=== PATIENT | male | born 1975 | race Caucasian/White ===

== ENCOUNTER 2022-05-28 08:04 | Emergency (ER) | payer SELFPAY ==
--- OUTSIDE RECORDS SUMMARY | 2022-05-28 08:08 | XMS REPORT | Continuity of Care Document ---
:1975 Author Organization [facility] t Address [address] [place] [address] Care Team Providers Name Role Phone Pcp, Patient Does Not Have A Primary Care Physician [phone] [facility] Attending Clinician Unavailable RYAN MELENDEZ Attending Clinician Unavailable RYAN MELENDEZ Admitting Clinician Unavailable Problems Condition Condition Condition Status Onset Resolution Last Treating Co mments Source Name Details Category Date Date Treatment Clinician Date Seizure Seizure Disease Active [facility] 2-23 ity of 00:00: [place] 00 Medical Branch Chronic Chronic Disease Active [facility] right-side right-side 11-01 it y of d [place] pain pain 00 Medical without without Branch sciatica sciatica Tobacco Tobacco Disease Active [facility] abuse abuse 11-01 ity of 00:00: [place] 00 Medical Branch Allergies, Adverse Reactions, Alerts This patient has no known allergies or adverse reactions. Social History Social Habit Start Date Stop Date Quantity Comments Source Sex Assigned At [birth year] [facility] [place] [facility]00 [facility]:00:00 Medical Branch Smoking Status Start Date Stop Date Source Tobacco smoking consumption [facility] Medical unknown Branch Medications Ordered Filled Start Stop Current Ordering Indication Dosage Frequency Signature Comments Components Source Medication Medication Date Date Medication? Clinician (SIG) Name Name naproxen Yes [id number] 550mg Take 1 Un remedios sodium 8-14 tablet by ity of (ANAPROX 00:00: mouth 2 [place] DS) 550 mg 00 (two) Medical tablet times Branch daily with meals. methylPREDN Yes [id number] Take by Univers ISolone 8-14 mouth ity of (MEDROL, 00:00: SEE-INSTRU Jon as MARISA,) 4 mg 00 CTIONS. Medica l tablets follow [place] package directions levETIRAcet Yes [id number] 500mg Take 1 Univers am (KEPPRA) 2-23 tablet by ity of 500 mg 00:00: mouth 2 [place] tablet 00 (two) Medical times Branch daily. LORazepam Yes 1mg Take 1 Univer s (ATIVAN) 1 7-26 tablet by ity of mg tablet 00:00: mouth 3 [place] 00 (three) Medical times Branch daily as needed for Anxiety or Agitation. NAPROXEN 2008-09 Yes 1 PO BID Unive rs 500 MG ORAL 1-18 PRN PAIN ity of TBEC 00:00: [place] 00 [facility] Branch ZITHROMAX 2008-09 Yes as Univers Z-MARISA 250 1-18 directed ity of MG ORAL TAB 00:00: [address] Branch Procedures This patient has no known procedures. Encounters Start End Encounter Admission Attending Care Care Encounter Source Date/Time Date/Time Type Type Clinicians Facility Department ID 2022-05-21 2022-05-21 Telephone Provider, [facility] [id number] Univers 00:00:00 00:00:00 [facility] [id number] it y of Urgent Care [place] [id number] [place] WARREN?BLEA [id number] [address] MEDICAL OFFICE BUILDING Results Test Description Test Time Test Comments Results Result [facility] e Comments MRI BRAIN W/ AND 2017-06-23 EXAM: MRI of the Brain W/O CONTRAST 19:53:32 without and with contrastLocation code:R 16HISTORY: Drug induced seizuresCOMPARISON: None available.TECHNIQUE:Sagi ttal T1, axial T1,T2, FLAIR, T2 GRE, Diffusion with ADC mapping,coronal T2 and post contrast axial and coronal T1 weighted images of the brainbefore and after contrast were obtained. Intravenous contrast administered nocontrast or GFR information is available.FINDINGS: No diffusion abnormalities are identified to suggest acute ischemicinfarction. No signal abnormalities are identified on T2 GRE images to suggestacute or chronic hemorrhagic products. There are no foci of abnormalparenchymal or leptomeningeal enhancement. The brain parenchymal volume andventricular caliber are within normal limits. No mass lesions or extra-axialfluid collections are seen. Few scattered foci of T2/FLAIR abnormalities arenoted in the subcortical and periventricular white matter and are non-specific.The midline structures including the corpus callosum, pituitary gland andsella, brainstem and craniocervical junction are normal. The posterior cranialfossa structures are normal. Normal signal voids are identified in theintracranial arterial vasculature and dural venous sinuses. The mastoid aircells and orbits are within normal limits. Partial opacification of the rightmaxillary sinus.IMPRESSION: No acute findings. No abnormal enhancement. Unremarkable brain. CT PE PROTOCOL 2017-06-23 CT CHEST WITH CONTRAST, 12:27:56 PE PROTOCOL:Location code: R 16CLINICAL HISTORY: Shortness of breath , chest painThe lungs are clear. There is no consolidation or effusion. The centralairways are patent.COMPARISON: NoneTECHNIQUE: Following the administration of a timed IV contrast bolus, helicalCT of the chest was performed. Thin section axial, coronal, and sagittalimages were obtained. Oblique sagittal maximum intensity reformatted images ofthe pulmonary arteries were also obtained. No contrast or GFR information isavailable.FINDINGS: There is no filling defect within the pulmonary arteries to suggest pulmonaryembolus. The aorta is of normal caliber and contour. There is a linear left upper lobe apical lesion which measures 4.8 x 2.6 x 3.1cm. The lesion contains scattered calcifications. Upper lobe predominantcentrilobular emphysema is noted.There is no mediastinal adenopathy or mass. There is no pericardial effusion. Images through the upper abdomen are unremarkable.The bones, skin and surrounding soft tissues are unremarkable. IMPRESSION:1. Negative for PE2. Linear left upper lobe apical mass is noted measuring 4.8 x 2.6 x 3.1 cm.This may represent scar tissue versus a malignancy. Consider further evaluationwith follow-up PET/CT clinically indicated.3. COPD DRUGS OF ABUSE 2017-06-23 12:21:00 Test Item Value Reference Range Interpretation Comme nts DRUG SCRN (test code = HDOA) URINE DRUG SCREEN This is an unconfirmed screening result and should not be used for non-medical purposes CANNABINOD (test code = 88C) Negative NEGATIVE AMPHETAMINE (test code = 84A) Negative NEGATIVE BENZODIAZP (test code = 86A) POSITIVE NEGATIVE A BARBITURAT (test code = 85A) Negative NEGATIVE OPIATES (test code = 92B) POSITIVE NEGATIVE A COCAINE (test code = 87A) POSITIVE NEGATIVE A PHENCYCLID (test code = 66A) Negative NEGATIVE METHADONE (test code = 64A) Negative NEGATIVE DOAH (test code = DOAH) URINE DRUG SCREEN Cut-off values are as follows: Cannabinoids 50 ng/mL Cocaine 300 ng/mL Amphetamines 1000 ng/mL Phencyclidine 25 ng/mL Benzodiazepines 200 ng.mL Methadone 300 ng/mL Barbiturates 200 ng/mL Opiates 2000 ng/mL URINALYSIS WITH [id number] 12:14:00 Test Item Value Reference Range Interpretation Comments COLOR (test code = COLU) YELLOW YELLOW CLARITY (test code = CLA) TURBID CLEAR A GLUCOSE UR (test code = UA GLUCOSE) NEGATIVE NEGATIVE BILI UR (test code = BILE) NEGATIVE NEGATIVE KETONES UR (test code = MATTY) 1+ NEGATIVE A SP GRAVITY (test code = SPGR) 1.021 1.005-1.030 PH UR (test code = PH) 7.0 4.5-8.0 PROTEIN UR (test code = PU) NEGATIVE NEGATIVE UROBIL UR (test code = UROQ) 0.2 EU/dL 0.2-1.0 NITRITE UR (test code = NITRITE) NEGATIVE NEGATIVE BLOOD UR (test code = UA BLOOD) NEGATIVE NEGATIVE LEUK ES UR (test code = LEUK) 1+ NEGATIVE A WBC UR (test code = UWBC) 4 /HPF 0-3 H RBC UR (test code = URBC) 0 /HPF 0-2 EPITH UR (test code = UEPC) FEW /LPF NONE A BACTERIA UR (test code = UBACT) NONE /HPF NONE CAST UR (test code = CAST) /LPF NONE CRYSTAL UR (test code = CRYU) / LPF NONE MUCUS UR (test code = MUC) / HPF NONE AMORPH UR (test code = YVON) / HPF NONE TRICH UR (test code = UTRICH) /HPF NONE YEAST UR (test code = UY) /HPF NONE SPERM UR (test code = USPERM) /HPF NONE [id number] 12:03:00 Test Item Value Reference Range Interpretation Comments D-DIMER (test code = 444 ng/mL D-DU 0-234 H DDI) D-DIMER COMMENT (test *Level to rule out code = DDCOM) DVT or PE: <235 ng/mL D-DU* [id number] 11:03:00 Test Item Value Reference Range Interpretation Comments SALICYLATE (test code = 94B) 4.2 mg/dL 2.8-20.0 [id number] 10:58:00 Test Item Value Reference Range Interpretation Comments ACETAMINPH (test code = 94M) <2.0 ug/mL 10.0-30.0 L COMPREHENSIVE METABOLIC [id number] 10:58:00 Test Item Value Reference Range Interpretation Comments GLUCOSE (test code = 06D) 159 mg/dL 75-100 H SODIUM (test code = 01A) 135 mmol/L 136-145 L POTASSIUM (test code = 01B) 4.6 mmol/L 3.6-5.1 CHLORIDE (test code = 04A) 102 mmol/L 98-107 CO2 (test code = 02A) 22 mmol/L 22-32 ANION GAP (test code = ANG) 15.6 mmol/L BUN (test code = 05D) 10 mg/dL 7-18 CREATININE (test code = 03E) 1.0 mg/dL 0.7-1.3 BUN/CREA (test code = BCR) 10 12-20 L CALCIUM (test code = 09D) 8.9 mg/dL 8.3-9.5 BILI TOTAL (test code = 11A) 0.4 mg/dL 0.2-1.0 PROTEIN (test code = 07D) 7.0 g/dL 6.4-8.2 ALBUMIN (test code = 08D) 3.3 g/dL 3.5-4.8 L GLOBULIN (test code = GLB) 3.7 g/dL 1.5-3.8 ALB/GLOB (test code = AGRR) 0.9 1.0-2.6 L ALK PHOS (test code = 35A) 116 IU/L 42-121 AST (test code = 30A) 20 IU/L <=42 ALT (test code = 31A) 27 IU/L <=78 [id number] 10:53:00 Test Item Value Reference Range Interpretation Comments MAGNESIUM (test code = 48A) 2.3 mg/dL 1.8-2.4 CARDIAC [id number] 10:51:00 Test Item Value Reference Range Interpretation Comments TROPONIN I (test code = A84) <0.015 ng/mL 0.000-0.045 CKMB (test code = A49) <1.0 ng/mL <=3.6 CPK (test code = 32A) 82 IU/L 39-308 CT CERVICAL SPINE W/O [id number] 10:50:58CLINICAL HISTORY: Neck pain.LOCATION: D4.FINDINGS: Multislice axial noncontrast images are obtained t hrough the cervicalspine. Sagittal and coronal reconstructed images are obtained and are used ininterpretation.There is normal alignment. Disc height is preserved at all levels. There ismild sclerosis and osteophyte formation at the atlantodental articulation.There is mild to moderate facet joint disease, greatest on the right at C4/C5.No acute skeletal abnormalities are identified. No acute soft tissueabnormalities are noted. No significant spinal canal narrowing is appreciated.Pronounced mucosal thickening is noted within the right maxillary sinus andthere is moderate mucosal thickening within the right sphenoid sinus. Mildmucosal thickening is noted within the left maxillary sinus and left sphenoidsinus.IMPRESSION:1. No acute abnormalities.ALCOHOL BLOOD (ETOH) 2017-06-23 10:47:00 Test Item Value Reference Range Interpretation Comments ALCOHOL (test code = <10 mg/dL <=10 56A) Ref Range Change (test Please note the code = REF RANGE) change in reference range PRO TIME AND [id number] 10:47:00 Test Item Value Reference Range Interpretation Comments PT (test code = 12.3 s 9.8-13.6 TT) INR (test code = 1.1 INR) INRH (test code = SUGGESTED THERAPEUTIC INRH) RANGE FOR INR: 2.5 - 3.5 For Patients with Prosthetic Valves or Patients with recurrent Thromboembolic Events 2.0 - 3.0 For Most Other Applications PTT (test code = 32.3 s 20.2-38.0 PTT) PTTH (test code = To monitor the PTTH) effectiveness of heparin, we offer the Anti-Xa (Heparin Assay). It can be used for either unfractionated or LMW Heparin. Order Code is ANTI-XA CT HEAD W/O [id number] 10:46:06Clinical History: Altered mental status.Location: D4.Findings: Multislice axial noncontrast images are obtained through the head.No comparison studies. There is an 8 mm old lacunar infarct or prominentperivascular space at the left basal ganglia. No other areas of abnormaldensity are otherwise identified within the brain. No mass effect is evident.There is no evidence of hydrocephalus. No intra or extra-axial hemorrhage orfluid collections are identified. No evidence of acute infarct is seen. Noabnormalities are noted of the visualized skeletal structures, sinuses, or softtissues.Impression:1. There is an 8 mm old lacunar infarct or prominent perivascular space at theleft basal ganglia. No acute abnormalities.XR CHEST 1 VIEW [id number] 10:38:08CLINICAL HISTORY: Chest pain. LOCATION: D4.FINDINGS: No comparison studies. A portable AP view of the chest is datedOct2016 at 1003 hours. The cardiomediastinal silhouette is withinnormal sizelimits. There is an approximately 5.5 cm irregular opacityoverlying the left lung apex. There is mild reticulonodular prominence at thelower lungs bilaterally. No pleural effusions are evident. There are nosignificant skeletal or soft tissue abnormalities. IMPRESSION:1. There is mild reticulonodular prominence at the lower lungs bilaterally.Acute mild interstitial infiltrates are not excluded.2. 5.5 cm irregular opacity overlying the left lung apex may representscarring.3. These findings may be further evaluated with CT chest without contrastCBC (INCLUDES AUTOMATED DIFFERENTIAL) 2017-06-23 10:38:00 Test Item Value Reference Range Interpretation Comments WBC (test code = WBC) 10.7 10\S\3/uL 4.5-11.0 RBC (test code = RBC) 4.42 10\S\6/uL 4.30-5.70 HGB (test code = HBG) 13.7 g/dL 14.0-18.0 L HCT (test code = HCT) 39.8 % 35.0-46.0 MCV (test code = MCV) 90.0 fL 80.0-94.0 MCH (test code = MCH) 31.0 pg 27.0-31.0 MCHC (test code = MCHC) 34.4 g/dL 32.0-36.0 RDW (test code = RDW) 15.8 % 11.5-14.5 H PLT (test code = PLT) 314 10\S\3/uL 130-400 MPV (test code = MPV) 8.6 fL 9.4-12.4 L NEUTROP # (test code = NE#) 7.5 10\S\3/uL 2.0-8.0 LYMPH # (test code = LY#) 2.0 10\S\3/uL 1.2-4.0 MONOCYTE # (test code = MO#) 0.9 10\S\3/uL 0.0-1.1 EOSINOPH # (test code = EO#) 0.1 10\S\3/uL 0.0-0.7 BASOPHIL # (test code = BA#) 0.1 10\S\3/uL 0.0-0.3 IG # (test code = IG#) 0.09 10\S\3/uL 0.00-0.06 H NRBC # (test code = NRBC#) 0.00 10\S\3/uL 0.00-0.01 NEUTROPH % (test code = NE%) 70.7 % 35.0-73.0 LYMPH % (test code = LY%) 18.7 % 20.0-55.0 L MONO % (test code = MO%) 8.3 % 2.5-10.0 EOSINOPH % (test code = EO%) 0.8 % 0.0-5.0 BASOPHIL % (test code = BA%) 0.7 % 0.0-2.0 IG % (test code = IG%) 0.8 % 0.0-0.8 NRBC% (test code = NRBC%) 0.0 % 0.0-0.2 MANDIFF (test code = MDIFF) NO NO RBC MORPH (test code = RBCMOR) NORMAL
[2022-05-28 08:25] LABS: Absolute Lymphocytes (CBC) 0.7 K/uL (0.7-4.9); Hematocrit 34.6 % (39.6-49.0); Lymphocytes % 6.5 % (15.3-44.8); MCV 89.4 fL (80-100); MPV 6.4 fL (7.6-11.3); RBC Red Blood Cell Count 3.87 M/uL (4.33-5.43)
[2022-05-28] MEDS ORDERED: ALBUTEROL 2.5 MG/3 ML NEB SOL ONE (08:34)
[2022-05-28] MEDS ORDERED: KETOROLAC 30 MG/ML INJ ONE (08:35)
[2022-05-28] MEDS ORDERED: NA CHLORIDE 0.9% 1,000 ML ONE (08:35)
[2022-05-28] MEDS ORDERED: predniSONE 20 MG TAB ONE (08:35)
[2022-05-28] MEDS ORDERED: IPRATROPIUM BROM 0.5MG/2.5ML ONE (08:35)
[2022-05-28 08:43] LABS: Albumin 2.1 g/dL (3.4-5.0); Bilirubin Total 0.3 mg/dL (0.2-1.0); Magnesium 2.2 mg/dL (1.8-2.4); Potassium 3.8 mmol/L (3.5-5.1); Protein, Total 7.7 g/dL (6.4-8.2); Troponin High Sensitivity 3.5 pg/mL (<58.9)
--- NOTE | 2022-05-28 09:24 | RAD REPORT ---
EXAM DESCRIPTION: RAD - Chest Single View - 05/28/2022 8:41 am CLINICAL HISTORY: CHEST PAIN Chest pain. COMPARISON: No comparisons FINDINGS: Portable technique limits examination quality. There is moderately severe opacification of the right upper lobe this is likely infection/pneumonia. The heart is normal in size. No displaced fractures. IMPRESSION: Moderate right upper lobe pneumonia.
--- NOTE | 2022-05-28 09:48 | EDPHYS ---
Physician Documentation [facility] Name: Vince Rm II Age: 46 yrs Sex: Male : 1975 Arrival Date: 05/28/2022 Time: 08:05 Bed 2 Private MD: ED Physician Nadja Alvarez HPI: 05/28 08:14 This 46 yrs old Male presents to ER via EMS with complaints of Painful Cough. sd2 08:14 46-year-old male presents via EMS with chief complaints of right-sided chest pain worse sd2 with coughing. He reports he started coughing 3 to 4 days ago and had a negative COVID test yesterday. He is currently at [facility] for cocaine abuse and has not had any cocaine within the last 2 weeks. He states he has had fevers up to 100.5 F. He did try taking Tylenol yesterday and did end up throwing it back up. However, he does not endorse any other nausea, vomiting or diarrhea. He denies any known sick contacts. Does report associated shortness of breath and does have a history of smoking but is not currently on any nebulizer treatments or inhalers at home.. Historical: - Allergies: 08:07 No Known Allergies; ll1 - PMHx: 08:07 None; ll1 - PSHx: 08:07 None; ll1 - Immunization history:: Client reports having NOT received the Covid vaccine. - Social history:: Smoking status: Patient reports the use of cigarette tobacco products, denies chronic smoking, but will smoke occasionally, smokes one-half pack cigarettes per day. ROS: 08:14 Eyes: Negative for injury, pain, redness, and discharge. sd2 08:14 Respiratory: Positive for shortness of breath, cough, wheezing. Abdomen/GI: Negative for abdominal pain and diarrhea, Positive for nausea and vomiting MS/Extremity: Negative for injury and deformity, Skin: Negative for injury, rash, and discoloration, Neuro: Negative for headache, numbness and tingling. 08:14 Constitutional: Positive for chills, fever, Negative for body aches, weight loss. 08:14 Cardiovascular: Positive for chest pain, Negative for edema, orthopnea, palpitations. Exam: 08:14 Constitutional: This is a well developed, well nourished patient who is awake, alert, sd2 and in no acute distress. Head/Face: Normocephalic, atraumatic. Chest/axilla: Normal chest wall appearance and motion. Nontender with no deformity. Cardiovascular: Regular rate and rhythm with a normal S1 and S2. No gallops, murmurs, or rubs. 2+ distal pulses. Respiratory: Expiratory wheezing noted in RLL, no chest wall tenderness or crepitus, no tachypnea, no increased WOB Abdomen/GI: Soft, non-tender, with normal bowel sounds. No guarding or rebound. No evidence of tenderness throughout. Skin: Warm, dry with normal turgor. Normal color with no rashes, no lesions, and no evidence of cellulitis. MS/ Extremity: Pulses equal, no cyanosis. Neurovascular intact. Full, normal range of motion. Ambulatory without difficulty. Psych: Awake, alert, with orientation to person, place and time. Behavior, mood, and affect are within normal limits. 08:20 ECG was reviewed by the Attending Physician. NSR, rate 87, no STEMI criteria, sd2 occasional PVCs present Vital Signs: 08:06 BP 110 / 67; Pulse 109; Resp 20; Temp 98.8; Pulse Ox 95% on R/A; Weight 59.42 kg; ll1 Height 5 ft. 11 in. (180.34 cm); Pain 9/10; 11:12 BP 111 / 67; Pulse 78; Resp 18; Pulse Ox 100% on R/A; kr3 08:06 Body Mass Index 18.27 (59.42 kg, 180.34 cm) ll1 MDM: 08:09 Patient medically screened. sd2 08:14 Differential Diagnosis: Other Differential diagnosis includes but is not limited to: sd2 ACS, DVT/PE, pneumothorax, dissection, musculoskeletal, anxiety, anemia, electrolyte abnormality, pneumonia, CHF, COPD among others. Data reviewed: vital signs, nurses notes, EMS record. 09:46 Data reviewed: lab test result(s), EKG, radiologic studies. Counseling: I had a sd2 detailed discussion with the patient and/or guardian regarding: the historical points, exam findings, and any diagnostic results supporting the discharge/admit diagnosis, lab results, radiology results, the need for outpatient follow up, to return to the emergency department if symptoms worsen or persist or if there are any questions or concerns that arise at home. Medical screen evaluation completed. EMTALA emergency medical condition absent. ED course: Labs and imaging reviewed. Pt positive for Flu A with RUL PNA on CXR. Rocephin given. Will discharge on Azithromycin and steroids with inhaler for home use. pt advised of continued supportive care for symptoms and need for outpatient follow up. Verbalizes understanding of discharge plan and strict return precautions. . 05/28 08:14 Order name: CBC with Diff; Complete Time: 08:50 sd2 05/28 08:14 Order name: CMP; Complete Time: 08:50 sd2 05/28 08:14 Order name: Magnesium; Complete Time: 08:50 sd2 05/28 08:14 Order name: Troponin High Sensitivity; Complete Time: 08:50 sd2 05/28 08:14 Order name: BNP; Complete Time: 08:50 sd2 05/28 08:14 Order name: SARS-COV-2 RT PCR (Document "Date of Onset" if Symptomatic); Complete Time: sd2 09:30 05/28 08:14 Order name: EKG - Nurse/Tech; Complete Time: 08:21 sd2 05/28 08:14 Order name: XRAY Chest (1 view); Complete Time: 09:30 sd2 05/28 08:14 Order name: Influenza Screen (a \\T\\ B); Complete Time: 09:30 sd2 Administered Medications: 08:42 Drug: Ketorolac 15 mg Route: IVP; Site: right forearm; kr3 11:24 Follow up: Response: No adverse reaction kr3 08:42 Drug: DuoNeb (albuterol 2.5 mg, ipratropium 0.5 mg) (3:1) (2.5 mg - 0.5 mg) 3 ml Route: kr3 Nebulizer; 11:22 Follow up: Response: No adverse reaction kr3 08:42 Drug: predniSONE 60 mg Route: PO; kr3 11:22 Follow up: Response: No adverse reaction kr3 08:42 Drug: NS 0.9% 500 ml Route: IV; Rate: bolus; Site: right forearm; kr3 11:22 Follow up: Response: No adverse reaction; IV Status: Completed infusion; IV Intake: kr3 500ml 10:10 Drug: Rocephin (cefTRIAXone) 1 grams Route: IV; Rate: bolus; Site: right forearm; kr3 11:22 Follow up: Response: No adverse reaction; IV Status: Completed infusion; IV Intake: [id number] Disposition Summary: 05/28/22 09:48 Discharge Ordered Location: Home sd2 Problem: new sd2 Symptoms: have improved sd2 Condition: Stable sd2 Diagnosis - Influenza due to identified novel influenza A virus sd2 - Right upper lobe pneumonia sd2 Followup: sd2 - With: Private Physician - When: 2 - 3 days - Reason: Recheck today's complaints, Continuance of care, Re-evaluation by your physician Discharge Instructions: - Discharge Summary Sheet sd2 - Influenza, Adult sd2 - Community-Acquired Pneumonia, Adult sd2 Forms: - Medication Reconciliation Form sd2 - Thank You Letter sd2 - Antibiotic Education sd2 - Prescription Opioid Use sd2 Prescriptions: - albuterol sulfate 90 mcg/actuation Inhalation HFA aerosol inhaler - inhale 2 puff by INHALATION route every 4-6 hours As needed for cough and sd2 shortness of breath; 1 Inhaler; Refills: 0, Product Selection Permitted - Zithromax Z-Gonzalo 250 mg Oral Tablet - take 1 tablet by ORAL route as directed for 5 days Day 1 - take two (2) tablets sd2 one time. Day 2, 3, 4 , 5 take one (1) tablet once daily.; 6 tablet; Refills: 0, Product Selection Permitted - Prednisone 20 mg Oral Tablet - take 2 tablets by ORAL route once daily for 5 days; 10 tablet; Refills: 0, sd2 Product Selection Permitted Signatures: Dispatcher [employer] Macario Brewster RN RN 1 Nadja Alvarez MD MD sd2 Chary Bennett RN RN kr3
--- NOTE | 2022-05-28 09:48 | ER ---
Nurse's Notes [facility] Name: Vince Rm II Age: 46 yrs Sex: Male : 1975 Arrival Date: 05/28/2022 Time: 08:05 Bed 2 Private MD: Diagnosis: Influenza due to identified novel influenza A virus;Right upper lobe pneumonia Presentation: 05/28 08:06 Chief complaint: Patient states: R sided CP with cough,fever off/on for 3-4 days[address] At [address] for cocaine use. Coronavirus screen: Vaccine status: Patient reports being unvaccinated. Client denies travel out of the [place] in the last 14 days. congestion, cough unrelated to allergies, difficulty breathing, fatigue, fever, headache, Client presents with at least one sign or symptom that may indicate coronavirus-19. Standard/surgical mask placed on the client. Ebola Screen: Patient denies travel to an Ebola-affected area in the 21 days before illness onset. Initial Sepsis Screen: Does the patient meet any 2 criteria? HR > 90 bpm. No. Patient's initial sepsis screen is negative. Does the patient have a suspected source of infection? Yes: Productive cough/pneumonia. Risk Assessment: Do you want to hurt yourself or someone else? Patient reports no desire to harm self or others. Onset of symptoms was May 24, 2022. 08:06 Method Of Arrival: EMS [facility] 08:06 Acuity: ELI 3 ll1 Triage Assessment: 08:08 General: Appears uncomfortable, ill, Behavior is cooperative, appropriate for age. ll1 Pain: Complains of pain in chest Pain currently is 9 out of 10 on a pain scale. Quality of pain is described as aching, pressure, Aggravated by coughing. Neuro: No deficits noted. Cardiovascular: No deficits noted. Respiratory: Reports cough that is pain with cough Airway is patent Trachea midline Respiratory effort is even, labored, Respiratory pattern is regular, symmetrical. Historical: - Allergies: 08:07 No Known Allergies; ll1 - PMHx: 08:07 None; ll1 - PSHx: 08:07 None; ll1 - Immunization history:: Client reports having NOT received the Covid vaccine. - Social history:: Smoking status: Patient reports the use of cigarette tobacco products, denies chronic smoking, but will smoke occasionally, smokes one-half pack cigarettes per day. Screenin:19 Abuse screen: Denies threats or abuse. Nutritional screening: No deficits noted. kr3 Tuberculosis screening: No symptoms or risk factors identified. Fall Risk IV access (20 points). Total Nguyen Fall Scale indicates No Risk (0-24 pts). Assessment: 11:13 Reassessment: Patient is alert, oriented x 3, equal unlabored respirations, skin kr3 warm/dry/pink. Patient states symptoms have improved. Vital Signs: 08:06 BP 110 / 67; Pulse 109; Resp 20; Temp 98.8; Pulse Ox 95% on R/A; Weight 59.42 kg; ll1 Height 5 ft. 11 in. (180.34 cm); Pain 9/10; 11:12 BP 111 / 67; Pulse 78; Resp 18; Pulse Ox 100% on R/A; kr3 08:06 Body Mass Index 18.27 (59.42 kg, 180.34 cm) ll1 ED Course: 08:05 Patient arrived in ED. ll1 08:07 Triage completed. ll1 08:07 Inserted saline lock: 20 gauge in right forearm, using aseptic technique. Blood ap3 collected. 08:07 Arm band placed on Patient placed in an exam room, on a stretcher. ll1 08:09 Nadja Alvarez MD is Attending Physician. sd2 08:21 Influenza Screen (a \\T\\ B) Sent. kc6 08:21 SARS-COV-2 RT PCR (Document "Date of Onset" if Symptomatic) Sent. kc6 08:22 Troponin High Sensitivity Sent. kc6 08:22 CMP Sent. kc6 08:22 Magnesium Sent. kc6 08:22 CBC with Diff Sent. kc6 08:22 BNP Sent. kc6 08:43 XRAY Chest (1 view) In Process Unspecified. EDMS 09:50 Chary Bennett, BRYSON is Primary Nurse. kr3 11:20 No provider procedures requiring assistance completed. IV discontinued, intact, kr3 bleeding controlled, No redness/swelling at site. Pressure dressing applied. 11:21 Patient has correct armband on for positive identification. Bed in low position. Call kr3 light in reach. Side rails up X 1. Administered Medications: 08:42 Drug: Ketorolac 15 mg Route: IVP; Site: right forearm; kr3 11:24 Follow up: Response: No adverse reaction kr3 08:42 Drug: DuoNeb (albuterol 2.5 mg, ipratropium 0.5 mg) (3:1) (2.5 mg - 0.5 mg) 3 ml Route: kr3 Nebulizer; 11:22 Follow up: Response: No adverse reaction kr3 08:42 Drug: predniSONE 60 mg Route: PO; kr3 11:22 Follow up: Response: No adverse reaction kr3 08:42 Drug: NS 0.9% 500 ml Route: IV; Rate: bolus; Site: right forearm; kr3 11:22 Follow up: Response: No adverse reaction; IV Status: Completed infusion; IV Intake: kr3 500ml 10:10 Drug: Rocephin (cefTRIAXone) 1 grams Route: IV; Rate: bolus; Site: right forearm; kr3 11:22 Follow up: Response: No adverse reaction; IV Status: Completed infusion; IV Intake: [id number] Medication: 11:21 VIS not applicable for this client. kr3 Intake: 11:22 IV: 10ml; Total: 10ml. kr3 11:22 IV: 500ml; Total: 510ml. kr3 Outcome: 09:48 Discharge ordered by . sd2 11:19 Patient left the ED. kr3 11:20 Discharged to Rehab Facility kr3 11:20 Condition: stable 11:20 Discharge instructions given to patient, Instructed on discharge instructions, follow up and referral plans. medication usage, Demonstrated understanding of instructions, follow-up care, medications. Signatures: Dispatcher [employer] EDMS Cha Nicholson RN RN ap3 Macario Arguello RN RN ll1 Nadja Alvarez MD MD sd2 Chary Bennett RN RN kr3 Sirisha Loaiza kc6
[2022-05-28] MEDS ORDERED: CEFTRIAXONE 1000 MG/VIAL ONE (10:14)
[2022-05-29 15:40] VITALS: BP 111/67; O2SAT 100
[2022-05-29 15:48] VITALS: TEMP 98.8
--- NOTE | 2022-05-30 06:38 | EKG ---
Test Date: 2022-05-28 Test Time: 08:11:54 Mastic Floor Layer: [facility] MEASUREMENT RESULTS: Intervals: Rate: 87 IN: 156 QRSD: 90 QT: 334 QTc: 401 [place]: P: 64 IN: 156 QRS: 84 T: 67 INTERPRETIVE STATEMENTS: Normal sinus rhythm Normal ECG No previous ECG available for comparison Electronically Signed On 05-30-22 06:32:12 CDT by Keith Jaeger
== END 2022-05-28 11:19 | disposition home or self-care (01) ==
LOC: ER 08:04
DX: J10.08 Influenza due to other identified influenza virus with other specified pneumonia (principal); Z20.822 Contact with and (suspected) exposure to COVID-19; F17.210 Nicotine dependence, cigarettes, uncomplicated
CPT/HCPCS: 36415; 71045; 80053; 83735; 83880; 84484; 85025; 87804; 93005; 94640; 96361; 96365; 96375; 99284; J7030; J7512; U0003